=== PATIENT | male | born 1975 | race Caucasian/White ===

== ENCOUNTER → 2020-06-10 | Outpatient (CLI) | payer BC ==
[~2020-06-10] MED LIST: HUMIRA40 MG/0.8 MR; ZANTAC150 MG PO; ZOFRAN4 MG PO
[2020-06-10 14:18] LABS: BASO % 0.4 % (0.0-1.0); EOS # 0.1 10*3/uL (0.0-0.4); EOS % 1.2 % (1.0-4.0); HEMATOCRIT 48.2 % (42.0-52.0); LYMPH # 2.8 10*3/uL (1.3-4.4); LYMPH % 26.6 % (27.0-41.0); MEAN CELL VOLUME 89.4 fl (80.0-94.0); MEAN CORPUSCULAR HGB 30.1 pg (27.0-31.0); MEAN CORPUSCULAR HGB CONC 33.6 g/dl (33.0-37.0); MEAN PLATELET VOLUME 8.8 fl (9.6-12.3); MONO # 0.7 10*3/uL (0.1-1.0); MONO % 6.8 % (3.0-9.0); NEUT # 6.9 10*3/uL (2.3-7.9); NEUT % 64.7 % (47.0-73.0); PLATELET COUNT AUTOMATED 357 10*3/uL (130-400); RED BLOOD COUNT 5.39 10*6/uL (4.50-5.90); RED CELL DISTRI WIDTH 12.4 % (0-14.5); WHITE BLOOD COUNT 10.6 10*3/uL (4.8-10.8)
[2020-06-10 14:44] LABS: BODY FLUID WBC 15456 /uL
[2020-06-10 16:07] LABS: BF LYMPHOCYTES 10 %; BF MACROPHAGES 1 %; BF MONOCYTES 8 %; BF NEUTROPHILS 81 %
[2020-06-11 07:10] LABS: HEP B CORE AB, IGM Negative (Negative); HEPATITIS B SURFACE AG Negative (Negative); HEPATITIS C VIRUS ANTIBODY <0.1 s/co (0.0-0.9)
[2020-06-11 08:12] LABS: RHEUMATOID ARTHRITIS FACTOR <10.0 IU/mL (0.0-13.9)
[2020-06-11 14:10] LABS: ANTI-RNP ANTIBODIES <0.2 AI (0.0-0.9)
[2020-06-11 15:06] LABS: ACID FAST SPEC PROCESSING Direct Inoculation (.)
[2020-06-12 00:06] LABS: CCP ANTIBODIES IGG/IGA 5 units (0-19)
[2020-06-12 02:10] LABS: PTT-LA 34.3 sec (0.0-51.9)
[2020-06-12 08:08] LABS: DVVTMIXRFX CHG; LUPUS DRVVT 55.3 sec (0.0-47.0)
[2020-06-12 09:10] LABS: LUPUS REFLEX INTERPRETATION Comment: (.)
[2020-06-16 14:08] LABS: HLA-B27 ANTIGEN Negative (.)
== END | disposition home or self-care (01) ==
LOC: LAB 13:38
PROVIDERS: Orthopaedic Surgery
DX: M25.461 Effusion, right knee (principal); M25.50 Pain in unspecified joint

== ENCOUNTER → 2020-06-24 | Outpatient (CLI) | payer BC | END | disposition home or self-care (01) | LOC: COVID19 10:21 | PROVIDERS: ATTEND Physician Assistant Medical | DX: J06.9 Acute upper respiratory infection, unspecified (principal); F17.200 Nicotine dependence, unspecified, uncomplicated; Z20.828 Contact with and (suspected) exposure to other viral communicable diseases ==

== ENCOUNTER → 2021-10-28 | Outpatient (CLI) | payer BC | END | disposition home or self-care (01) | LOC: COVID19 14:57 | PROVIDERS: ATTEND Internal Medicine | DX: U07.1 COVID-19 (principal) ==

== ENCOUNTER → 2023-10-07 | Outpatient (CLI) | payer BC | END | disposition home or self-care (01) | LOC: CT 00:05 | PROVIDERS: ATTEND Nurse Practitioner Family | DX: K40.90 Unilateral inguinal hernia, without obstruction or gangrene, not specified as recurrent (principal); K59.00 Constipation, unspecified; Z90.49 Acquired absence of other specified parts of digestive tract ==